=== PATIENT | female | born 1975 | race Caucasian/White ===

== ENCOUNTER 2024-01-27 09:03 | Outpatient (CLI) | payer BC, SELFPAY ==
--- NOTE | ~2024-01-27 | MR_ITS ---
MRI of the lumbar spine Clinical History: Spondylolisthesis Technique: Axial T2-weighted images, and sagittal T1-weighted, T2-weighted, and T2 fat-sat images wer e acquired. Findings: There are bilateral L4 pars interarticularis defects, with 7 mm anterolisthesis of L4 over L5. No acute fracture or other subluxation seen. No suspicious bone marrow signal abnormality seen. P robable type III Modic changes about the L4-L5 disc space. At L1-L2, there is no disc bulge or herniation. There is mild to moderate facet arthropathy. No centr al canal stenosis or neural foraminal narrowing. At L2-L3, there is no disc bulge or herniation. There is mild facet arthropathy. No central canal paul nosis or neural foraminal narrowing. L3-L4, there is no disc bulge or herniation. There is moderate facet arthropathy. No central canal st enosis or neural foraminal narrowing. At L4-L5, there is severe degenerative disc narrowing with minimal disc bulge and moderate facet arth ropathy. No central canal stenosis. There is moderate right neural foraminal narrowing and minimal le ft neural foraminal narrowing. At L5-S1, there is minimal disc bulge and mild to moderate facet arthropathy. No central canal stenos is or neural foraminal narrowing. Paravertebral soft tissues are unremarkable.. Impression: Bilateral L4 pars interarticularis defects, with 7 mm anterolisthesis at this level. Moderate degenerative spondylosis at L4-L5, as above. Reviewed, dictated and finalized at [facility]. Impression: Bilateral L4 pars interarticularis defects, with 7 mm anterolisthesis at this l evel. Moderate degenerative spondylosis at L4-L5, as above.
== END 2024-01-27 09:04 ==
LOC: GOSHIMG 09:04
PROVIDERS: PCP Pain Medicine Pain Medicine; Visit Provider Neurological Surgery
DX: M43.16 Spondylolisthesis, lumbar region (principal); M47.896 Other spondylosis, lumbar region
CPT/HCPCS: 72148

== ENCOUNTER 2024-07-19 13:49 | Outpatient (CLI) | payer BC, SELFPAY ==
--- NOTE | 2024-07-19 14:38 | ECG_ITS ---
Test Date: 2024-07-19 14:50:52 Measurements Intervals Boykins Rate: 63 P: 2 CA: 160 QRS: -1 QRSD: 89 T: 12 QT: 409 QTc: 420 Interpretive Statements SINUS RHYTHM POOR R WAVE PROGRESSION BORDERLINE ECG No previous ECG available for comparison Electronically Signed On 07-19-2024 14:51:56 [employer]ADDLE [employer]ER by Akira Fleming D.O.
[2024-07-19 15:10] LABS: Hematocrit 36.8 % (37.0-47.0); Hemoglobin 11.3 g/dL (12.0-15.0); Mean Corpuscular HGB Conc 30.7 g/dl (32-36); Mean Corpuscular Hemoglobin 25.6 pg (26-34); Mean Corpuscular Volume 83.3 fl (80-100); Mean Platelet Volume 10.3 fl (7.4-10.4); Platelet Count Result 351 k/mm3 (150-375); Red Blood Count 4.42 M/mm3 (4.2-5.4); White Blood Count 7.8 K/mm3 (4.5-10.0)
[2024-07-19 15:29] LABS: Partial Thromboplastin Time 29.5 Seconds (22.3-36.8)
[2024-07-19 16:16] LABS: Anion Gap 7 mmol/L (4-12); Blood Urea Nitrogen 21 mg/dL (7-17); Calcium 9.5 mg/dL (8.4-10.2); Carbon Dioxide 26 mmol/L (22-30); Chloride 105 mmol/L (98-107); Estimated Glomerular Filt Rate > 60; Glucose 86 mg/dL (65-110); Potassium 4.3 mmol/L (3.4-5.0); Sodium 138 mmol/L (137-145)
[2024-07-19 16:30] LABS: Add Urine Microscopic? NO; Appearance Urine Clear (Clear); Bilirubin Urine Negative (Negative); Blood Urine Negative (Negative); Color Urine Yellow (Yellow); Glucose Urine UA Negative (Negative); Ketones Urine Negative (Negative); Leukocyte Esterase Ur Negative LEU/UL (Negative); Nitrate Urine Negative (Negative); Protein Urine Negative (Negative); Specific Grav Ur 1.009 (1.001-1.035); Urobilinogen Urine 0.2 mg/dL (<2.0); pH Urine 5.5 (5.0-9.0)
== END 2024-07-19 13:50 | disposition home or self-care (01) ==
PROVIDERS: Visit Provider Neurological Surgery
DX: Z01.818 Encounter for other preprocedural examination (principal); M43.10 Spondylolisthesis, site unspecified
CPT/HCPCS: 36415; 80048; 81003; 85027; 85610; 85730; 86850; 86900; 86901; 93005

== ENCOUNTER 2024-07-27 00:07 | Inpatient (IN) | payer BC, SELFPAY ==
[2024-07-17 09:27] VITALS: BMI 29.0
--- NOTE | 2024-07-17 09:28 | PC.NURSE ---
Report to the Outpatient Waiting Room, entrance under the green pavilion located off [facility], at time _0600_ on date _[id number]_. Planned Procedure Time: _0730_.? Time changes happen often and if your time is changed the preop area will call you the afternoon before. - You and your visitor will be asked to self-screen and do not enter if you have any COVID symptoms. Please call surgeon if you need to reschedule. - A mask is optional within the hospital at this time. Patients may have clear liquids (water, carbonated beverages, clear teas, apple juice) until 3 hours prior to surgery with a maximum of 20 ounces. - No food from midnight until time of surgery and no smoking. This includes no chewing gum, candy or mints. Take only the following medications with a SIP of water on the morning of surgery: __None____ DO NOT STOP ANY OF YOUR OTHER PRESCRIPTION MEDICATIONS PRIOR TO SURGERY EXCEPT THE FOLLOWING Medications to discontinue per physician ____None____ Please no make-up, nail maltese, hairspray, perfume, deodorant, or body powder the day of surgery.? No jewelry (including any body piercings) or valuables the day of surgery, leave them at home.? Please take a shower or bath the night before, or the morning of, surgery with an antibacterial soap.? Wear comfortable, loose fitting clothing.? - Jewelry must be removed prior to entering the operating room.? Rings and piercings that are not removed may be cut off. - The hospital will not accept responsibility for valuables.? - Please leave all valuables, including medications, at home the day of surgery. If you are going home after surgery, a licensed sheet pile driver operator must drive you home.? - NO public transportation without another adult if you receive anesthesia. - We recommend that an adult stay with you for 24 hours following discharge. - We also recommend that you do not drive, make important decision, drink alcoholic beverages, or take any drugs that were not prescribed by your health care provider for at least 24 hours after your discharge time. Follow any additional instructions given to you from your surgeon. Telephone instructions given to __Shannon_and asked if any additional questions and then verbalized understanding. Patient advised to call surgeon office or pre surgery nurse liaison [phone] if any additional questions.
[2024-07-24] VITALS (17 sets, daily range): BP systolic 118–162; BP diastolic 67–104; PULSE 71–107; RESP 11–20; TEMP 36.2–37.1; O2SAT 97–100; BMI 30.7
[2024-07-24] MEDS: LACTATED RINGERS 1,000 ML 30 ML IV CONT ×2 (06:50→10:25)
--- NOTE | 2024-07-24 07:05 | WPDANESEPPF ---
Anes - Initial Pre Proc Eval Procedure: Operation Date: 07/24/24 07:30 Proposed Procedures p L4-5 Posterior Lumbar Interbody Fusion - Hoang Dalton MD Date/Time: 07/24/24 07:05 Surgeon: Hoang Dalton MD Pre Op Diagnosis: L4 PARS defect, L4-5 spondyolithesis Patient Data Age: 49 Gender: F Height: 1.7 m Weight: 84 kg Allergies Allergy/AdvReac Type Severity Reaction Status Date / Time Sulfa (Sulfonamide Allergy Mild Unknown Verified 07/17/24 15:00 Antibiotics) Home Medications Medication Instructions Recorded Confirmed Type estradiol 1 mg tablet 0.5 mg PO DAILY 10/04/22 07/17/24 History tramadol 50 mg tablet 50 mg PO Q6H PRN Pain 10/04/22 07/17/24 History sumatriptan succinate 50 mg tablet 50 mg PO ONCE PRN Migraine Headache 03/27/24 07/17/24 History (Imitrex) tizanidine 4 mg tablet 4 mg PO HS 07/17/24 07/17/24 History zolpidem 5 mg tablet 5 mg PO HS PRN Insomnia 07/17/24 07/17/24 History Patient hx anesthesia problems: none Family hx anesthesia problems: none Results Review: All pre-operative results and documents have been reviewed as part of the pre-operative evaluation. [facility] Past Medical History Medical History Headache Thyroid disease Surgical History Surgical History H/O: hysterectomy Previous section S/P appendectomy Family History Family History Other Diabetes mellitus Heart disease Hypertension Social History Social History Smoking status: Never smoker Alcohol intake: never Substance use: never Substance use type: does not use Do You Feel Safe in your Home?: Yes Lack of Transportation: No Lack of Food: Never True Current Housing: I Have Housing Concerned About Future Housing: No Difficulty Paying Gas/Electric Bills: No Difficulty Paying for Meds: No Currently Unemployed: No Education: Associate Degree Difficulty w/ Childcare or Family Care: No Living arrangements: with family Spiritual care concerns: No Anes - Eval Final PreProcedure Day of Procedure 07/24/24 07:05 Patient weight: overweight Heart: regular rate and rhythm Lungs: clear to auscultation Airway: Mallampati scale class II Neurological: alert and oriented Last oral intake: >/= 8 hours ASA classification: II Emergent: no Anesthetic plan: proceed Anesthesia type and monitoring: general ETT and standard monitoring Results Review: All pre-operative results and documents have been reviewed as part of the pre-operative evaluation. Hx of multinodular goiter, stable of recent, migrane WAGONER by hx. Pt can walk 1-2 fos, 1 mile, no cp or sob. Informed Consent: The patient's anesthetic plan and its attendant risks and benefits were discussed with the patient/family/POA. Questions were solicited and answers provided to the satisfaction of the patient/family/POA.
--- NOTE | 2024-07-24 07:46 | P.HP_ITS ---
H&P: HPI History of Present Illness Date/Time: 07/24/24 07:46 Chief Complaint: Back and leg pain Narrative: Temitope is 49-year-old female with back and leg pain related to pars defects. She continues to have discomfort in her back radiating into her lower extremities. She has episodes every couple of months where the pain is more significant. she recently had such an episode. In December she had about 4 weeks of more severe pain and underwent a new MRI of her lumbar spine because of it. It eventually resolved. She has difficulty sleeping at night. She is able to walk well enough to do normal shopping activities. She is now back to her baseline discomfort pattern and can participate in landscaping and lawn care activities for about 45 minutes but will pay for it the next day. She is not having new bowel or bladder difficulty or other constitutional problems. She does not report specific muscle group weakness or dermatomal numbness. An always her problems seem to have remained the same since we saw her last. Her discomfort has been present for years. It is Limiting and distracting on a daily basis. at times it is quite severe, as noted. It is not associated with specific muscle group weakness or dermatomal numbness or any bowel or bladder difficulty. The pain is mostly in her back and radiates only proximally into the lower extremities and does not lateralize. Review of Systems Review of Systems: All systems reviewed & are unremarkable except as noted in HPI and below Denies chills, Denies fever(s), Denies frequent falls, Denies weakness, Denies weight gain and Denies weight loss Eyes Denies change in vision and Denies diplopia ENT Denies neck pain and Denies disequilibrium Card Denies chest pain and Denies dyspnea Resp Denies cough and Denies dyspnea GI Denies abdominal pain, Denies change in bowel habits, Denies fecal incontinence and Denies vomiting Denies hematuria, Denies urinary frequency, Denies difficulty voiding, Denies dysuria, Denies urinary incontinence, Denies urinary hesitancy and Denies urinary urgency Musc Reports as per HPI, Denies abnormal gait, Reports back pain, Denies neck pain, Denies numbness, Reports stiffness and Denies tingling Skin/ Breast Reports system reviewed and no additional complaints, except as documented Neuro Reports as per HPI, Denies abnormal gait, Denies burning sensations, Denies frequent falls, Denies focal weakness, Denies numbness, Denies radicular pain, Denies tingling, Denies disequilibrium and Denies weakness Psych Reports no additional complaints, Denies depression and Denies hopelessness Endo Reports no additional complaints and Denies polyuria Jasper/ Lymph Reports no additional complaints Aller/ Immun Reports no additional complaints PMFSH Past Medical History Medical History Headache Thyroid disease Surgical History Surgical History H/O: hysterectomy Previous section S/P appendectomy Family History Family History Other Diabetes mellitus Heart disease Hypertension Social History Social History Smoking status: Never smoker Alcohol intake: never Substance use: never Substance use type: does not use Do You Feel Safe in your Home?: Yes Lack of Transportation: No Lack of Food: Never True Current Housing: I Have Housing Concerned About Future Housing: No Difficulty Paying Gas/Electric Bills: No Difficulty Paying for Meds: No Currently Unemployed: No Education: Associate Degree Difficulty w/ Childcare or Family Care: No Living arrangements: with family Spiritual care concerns: No Meds Home Medications and Allergies Home Medications Medication Instructions Recorded Confirmed Type estradiol 1 mg tablet 0.5 mg PO DAILY 10/04/22 07/17/24 History tramadol 50 mg tablet 50 mg PO Q6H PRN Pain 10/04/22 07/17/24 History sumatriptan succinate 50 mg tablet 50 mg PO ONCE PRN Migraine Headache 03/27/24 07/17/24 History (Imitrex) tizanidine 4 mg tablet 4 mg PO HS 07/17/24 07/17/24 History zolpidem 5 mg tablet 5 mg PO HS PRN Insomnia 07/17/24 07/17/24 History Allergies Allergy/AdvReac Type Severity Reaction Status Date / Time Sulfa (Sulfonamide Allergy Mild Unknown Verified 07/24/24 07:21 Antibiotics) Vital Signs Vital Signs - 24 hr 07/24/24 06:13 Temperature 97.2 F L Pulse Rate 71 Respiratory Rate 16 Blood Pressure 136/83 Pulse Oximetry 100 Oxygen Delivery Room Air Exam Narrative: General: cooperative, no acute distress, well developed, alert and awake Orientation/Consciousness: oriented to person, oriented to place and oriented to time Constitutional Limitations: no limitations Other: The patient is a normally developed, normal appearing female sitting on the examination table in no acute distress. She is awake, alert, and oriented x3 with good fund of knowledge, recall of events, and fluent speech. HENMT Head: normocephalic and atraumatic Ears: external ears normal Face/Nose/Sinus: Normal external nose present Eyes Eyelids: eyelids normal Pupils: Yes Pupils normal by confrontation EOM: EOMs intact bilaterally Neck General: Yes no meningeal signs, Yes supple and Yes no JVD Resp Effort/Inspection: normal respiratory effort and able to speak in complete sentences Cardio Rate: Yes regular rate GI Inspection: No abdominal distension Musc Other: Examination of the back reveals no tenderness in the lumbar paraspinous musculature or over the sacrum. Range of motion of the back is limited in forward flexion and painful coming out of flexion. Straight leg raise is negative bilaterally. Linden?s test is negative bilaterally. Skin General: normal color Neuro General: Yes oriented to person, Yes oriented to place, Yes oriented to time, Yes normal cognition and Yes no meningeal signs Cranial Nerves: Yes CN's II-XII intact bilaterally Other: Motor: Strength is normal, 5/5, throughout all muscle groups of the bilateral lower extremities to direct confrontation. Sensory: Sensation is intact to light touch throughout the lower extremities bilaterally. Gait: Gait, station, and transfers are independent and steady for short periods of time and over short distances. Psych Appearance: grossly normal Mental status: Yes mental status grossly normal Mood: congruent mood Affect: Yes normal affect Speech/Movement: Normal speech and movement present Attitude: Yes cooperative Thought Content: Normal thought content present Assessment and Plan Assessment and plan (1) Pars defect with spondylolisthesis: Code(s): M43.10 - Spondylolisthesis, site unspecified Status: Acute Assessment and Plan: Temitope is a 49-year-old female with back pain which is severe and limiting for her and which she has been dealing with for years and is now become unbearable limiting her on a daily basis. She would like to proceed with surgical management is all nonsurgical attempts to make her better have failed. I therefore described her L4-5 posterior lumbar interbody fusion, its risks, potential benefits, the operative and postoperative course in detail and answe red all of her questions personally. We discussed risks including but not limited to permanent neurologic deficit secondary to nerve root injury, need for reoperation secondary to infection, bleeding, CSF leak, adjacent level disease, recurrent residual pathology, instability, failure of the procedure to relieve her pain or symptoms, malposition migration of the hardware or nonunion, persistent pain, medical complications related anesthesia or surgery, etc.. She indicates understanding and elects to proceed with that operation.
--- NOTE | 2024-07-24 07:49 | WPDHPUPDATE1 ---
History and Physical Update Update Date/Time: 07/24/24 07:49 History and Physical has been reviewed, including an updated exam of the patient. There are NO changes in the patient's condition. Risks, benefits, and alternatives have been discussed and questions answered. Patient agrees to proceed with procedure.
[2024-07-24] MEDS: ceFAZolin 2 GM/D5W 50 ML 2 GM/50 ML BAG IVPB (07:55)
[2024-07-24] MEDS: LIDO 1%/EPINEPHRINE 1:100,000 50 ML VIAL INFILTRATE (08:38)
[2024-07-24] MEDS: fentaNYL CITRATE INJ (*CRX) 100 MCG/2 ML VIAL 25 MCG IV PUSH ×8 (10:33→10:54)
[2024-07-24] MEDS: diazePAM INJ (*CRX) 10 MG/2 ML SYRINGE 2.5 MG IV PUSH ×2 (11:00→11:05)
[2024-07-24] MEDS: HYDROmorphone HCL INJ (*CRX) 1 MG/ML SYR 0.25 MG IV PUSH ×12 (11:10→12:10)
[2024-07-24] MEDS: KCL 20 MEQ/D5/0.45% SOD CHL 1,000 ML 100 ML IV CONT (13:04)
[2024-07-24] MEDS: HYDROmorphone HCL INJ (*CRX) 1 MG/ML SYR IV PUSH ×3 (13:07→18:53)
--- NOTE | 2024-07-24 13:28 | ADMGEN ---
This patient, Temitope Duarte, was admitted to [facility] Surg Room 331-02. Patient/family oriented to hospital policies and general routines including ID bracelet, bed and alarms, visiting hours, pain management, procedures, bathroom and other care routines, personal items, smoking policy, room service/diet, and visiting hours. Information on how to activate the Rapid Response Team has been discussed. Patient/Family are encouraged to report perceived risks to care and to ask questions if they do not understand what they are told or what they should do.
[2024-07-24] MEDS: diazePAM INJ (*CRX) 10 MG/2 ML SYRINGE 5 MG IV PUSH (14:08)
--- NOTE | 2024-07-24 14:39 | PCPTNOTE ---
Attempted PT evaluation, pt refused due to pain. Will follow.
[2024-07-24] MEDS: ceFAZolin 1 GM/NS 50 ML 1 GM/50 ML BAG IVPB ×2 (15:36→23:20)
[2024-07-24] MEDS: ONDANSETRON INJ 4 MG/2 ML VIAL IV PUSH (16:28)
[2024-07-24] MEDS: HYDROcodone/acetaminophen (*CRX) 5-325 MG TABLET 1 TAB PO ×2 (17:11→21:35)
[2024-07-24] MEDS: SENNA/DOCUSATE SODIUM TABLET 1 TAB PO (17:20)
[2024-07-24] MEDS: DOCUSATE SODIUM 100 MG CAPSULE PO (20:02)
[2024-07-24] MEDS: diazePAM (*CRX) 5 MG TABLET PO (20:02)
[2024-07-25] MEDS: HYDROcodone/acetaminophen (*CRX) 5-325 MG TABLET 1 TAB PO ×2 (00:42→05:03)
[2024-07-25] MEDS: ONDANSETRON INJ 4 MG/2 ML VIAL IV PUSH ×2 (00:42→12:03)
[2024-07-25 00:56] VITALS: BP 116/57; PULSE 70; RESP 16; TEMP 36.7; O2SAT 100
[2024-07-25] MEDS: diazePAM (*CRX) 5 MG TABLET PO ×4 (01:58→20:33)
[2024-07-25 05:37] VITALS: BP 110/58; PULSE 71; RESP 18; TEMP 37.9; O2SAT 100
[2024-07-25 08:00] VITALS: BP 123/81; PULSE 92; RESP 20; TEMP 37; O2SAT 100
--- NOTE | 2024-07-25 08:00 | WPDANESPN ---
Anes - Prog Note Post-Op Date/Time: 07/25/24 08:00 Cardiovascular status: normal Respiratory status: normal Airway patency: baseline Mental status: baseline (Patient tearful due to pain level.) Post-Op hydration status: normal Vital Signs: Last Vital Signs Temp 37.9 C H 07/25/24 05:37 Pulse 71 07/25/24 05:37 Resp 18 07/25/24 05:37 BP 110/58 L 07/25/24 05:37 Pulse Ox 100 07/25/24 05:37 O2 Del Method Room Air 07/24/24 20:00 O2 Flow Rate 6 07/24/24 10:55 Pain Score (VAS): 10 I/O: Intake & Output 07/24/24 07/25/24 07/25/24 23:59 07:59 15:59 Intake Total 170 550 Output Total 2200 Balance 170 -1650 Post-procedural complaints: none (No anesthesia complaints.) Patient Feedback: Patient satisfied with anesthetic care.
[2024-07-25] MEDS: ceFAZolin 1 GM/NS 50 ML 1 GM/50 ML BAG IVPB (08:04)
[2024-07-25] MEDS: DOCUSATE SODIUM 100 MG CAPSULE PO ×2 (08:04→20:33)
[2024-07-25] MEDS: HYDROcodone/acetaminophen (*CRX) 10-325 MG TABLET 1 TAB PO (08:46)
[2024-07-25] MEDS: HYDROmorphone HCL INJ (*CRX) 1 MG/ML SYR IV PUSH ×2 (09:15→17:51)
--- NOTE | 2024-07-25 10:32 | PCOTNOTE ---
Patient has declined therapy for the A.M. Patient's has declined her PT Evaluation and OT treatment sessions this morning. Patient states she is having to much pain, refuses. Will attempt again this afternoon.
[2024-07-25] MEDS: ACETAMINOPHEN 500 MG TABLET 1000 MG PO ×3 (12:01→20:33)
[2024-07-25] MEDS: oxyCODONE HCL (*CRX) 5 MG TAB IR 10 MG PO ×3 (12:02→20:33)
--- NOTE | 2024-07-25 13:10 | W.PM.PROC2 ---
Procedure Note - Detailed Date of Procedure 07/25/24 Pre-op Diagnosis L4 PARS defect, L4-5 spondyolithesis Post-op Diagnosis Same Procedure Performed L4-5 complete laminectomy and bilateral facetectomy, L4-5 complete diskectomy and interbody arthrodesis utilizing titanium interbody devices and local autograft, L4-5 pedicle screw instrumentation Surgeon Hoang Dalton MD Anesthesia General Description of Procedure the patient was brought to the operating room in the supine position, was sedated, intubated and placed under general anesthesia in routine fashion. She was then turned into the prone position on a Carlos frame. The operation on her back was examined, marked for incision, prepped and draped in routine sterile fashion. Incision was marked over the L4 and L5 spinous processes in the midline. This area was injected with 0.5% lidocaine with 1 200,000 epinephrine. Intravenous antibiotics given prior to incision. Incision was made with a 10 blade scalpel down to the lumbodorsal fascia. A subperiosteal dissection of the muscle and soft tissue away from spinous process and lamina at L4-5 was performed with a subperiosteal elevator and Bovie cautery. A verifying x-rays obtained to verify level of operation. The L4 spinous process was removed with a Jose rongeur. Kerrison punches, curved curettes and a Leksell rongeur were used to remove lamina in the midline until the soft contents of the canal were encountered. Pars was interrupted because of pars defects on either side. The inferior articular process and facet of L4 was removed bilaterally after incising the ligament holding the joint in place. These +spinous process were stripped free of soft tissue and morselized for later use as interbody autograft. Kerrison punches and curved curettes were used to define a plane with the dura and remove bone and ligament flush with the pedicle and through the foramina widely decompressing the exiting nerve roots. With the thecal sac retracted and protected the disc space is entered bilaterally using an 11 blade scalpel. This was done with an introducer. Only a 7 mm scraper could be used. Curved curettes and straight curettes were used to remove cartilaginous endplate disc material down to bleeding cortical flat surfaces on the opposing bones. The disc space was incised and 9 mm interbody devices were chosen and filled with local autograft bone. The disc space was likewise filled with local autograft bone medially and anteriorly. Interbody devices were then placed 2-3 mm countersink within the disc space bilaterally. Pedicle screw instrumentation was performed at L4 and L5 by observing and palpating the pedicle while a hole was made in superior articular process of the pedicle using a Midas Elmer drill. The pedicle was then cannulated with a pedicle probe, check for continuity with the ball probe, tapped with a 5.5 mm tap and a 6.5 x 50 mm screw was placed into each pedicle on each side. 40 mm rods were placed in the screw heads on either side and secured in position using the capsular that purpose. These were definitively tightened with the torque and anti torque device. A verifying x-rays obtained to verify good position of the instrumentation which was confirmed. The wound was copiously irrigated with bacitracin irrigation all bleeding stopped with bipolar and Bovie cautery Gelfoam thrombin powder. As there were some areas of dural thinning piece of DuraGen and DuraSeal were placed over these areas. No leaking was noted. No drain was placed. The wound was then closed in layered fashion with 2-0 Vicryl interrupted sutures in the lumbodorsal fascia and Josh's layer. 3-0 Vicryl buried interrupted sutures were placed in the dermis and the skin was closed with a running 4-0 Monocryl subcuticular stitch and dressed with Dermabond. The patient was loud wake up in the operating room and was taken to the recovery room in stable condition. There were no immediate complications of this operation. All counts were reported correct at the end case. Blood loss was 150 cc. The patient was neurologically at her baseline postoperatively. CPT codes: 91862, 22964, 81402, 91934, 70144 Estimated Blood Loss 150 Complications None Condition Stable Disposition PACU
--- NOTE | 2024-07-25 13:26 | WPDNEUROSGPN ---
Progress Note: A&P Assessment and Plan (1) Status post lumbar spinal arthrodesis: Code(s): Z98.1 - Arthrodesis status Status: Acute Plan -Changed pain medication to scheduled Tylenol with PRN oxycodone -Remove owen catheter today -Out of bed to chair, ambulate during day -PT/OT evaluations Subjective Date/time seen: 07/25/24 13:26 Interval history: Having quite a bit of back pain today which has been best relieved with valium and a dose of dilaudid. Denies leg pain/paresthesias. She has been ambulating, mostly to try to find a more comfortable position. Poor PO intake due to pain and nausea. Owen catheter is still in Review of Systems Review of Systems: All systems reviewed & are unremarkable except as noted in HPI and below Exam Narrative: AOx4 Full strength in lower extremities Sensation intact to light touch Incision c/d/i Objective Data Vital Signs Vital Signs: Vital Signs - 24 hr 07/24/24 13:33 07/24/24 13:37 07/24/24 14:00 Temperature 97.7 F 97.7 F 98.1 F Pulse Rate 97 99 104 H Respiratory Rate 17 16 17 Blood Pressure 135/88 127/84 162/91 H Pulse Oximetry 100 99 98 Oxygen Delivery 07/24/24 17:37 07/24/24 20:41 07/24/24 20:00 Temperature 97.5 F L 98.2 F Pulse Rate 91 90 90 Respiratory Rate 17 20 20 Blood Pressure 131/85 118/67 Pulse Oximetry 100 99 99 Oxygen Delivery Room Air 07/25/24 00:56 07/25/24 05:37 07/25/24 08:00 Temperature 98.1 F 100.2 F H 98.6 F Pulse Rate 70 71 92 Respiratory Rate 16 18 20 Blood Pressure 116/57 L 110/58 L 123/81 Pulse Oximetry 100 100 100 Oxygen Delivery 07/25/24 08:00 Temperature Pulse Rate Respiratory Rate Blood Pressure Pulse Oximetry Oxygen Delivery Room Air Intake/Output Intake/Output: Intake & Output 07/22/24 07/23/24 07/24/24 07/25/24 23:59 23:59 23:59 23:59 Intake Total 870 908 Output Total 1350 2200 Balance -151 -0443 Meds/Results Medications: Active Medications Generic Name Dose Route Start Last Admin Trade Name Freq PRN Reason Stop Dose Admin Acetaminophen 1,000 mg 07/25/24 11:50 07/25/24 12:01 Acetaminophen 500 Mg Tablet PO 1,000 mg Q6H PRINCE Administration Al Hydrox/Mg Hydrox/Simethicone 20 ml 07/24/24 10:37 Mag Hydrox/Al Hydrox/Simeth 30 Ml Udc PO Q4H PRN Indigestion/Heartburn Bisacodyl 10 mg 07/24/24 10:37 Bisacodyl 10 Mg Suppository RECTAL DAILY PRN Constipation Diazepam 5 mg 07/24/24 13:57 07/25/24 08:04 Diazepam (*Crx) 5 Mg Tablet PO 5 mg Q6HR PRN Administration Muscle Spasm Docusate Sodium 100 mg 07/24/24 21:00 07/25/24 08:04 Docusate Sodium 100 Mg Capsule PO 100 mg Q12HR PRINCE Administration Estradiol 0.5 mg 07/25/24 09:00 07/25/24 08:04 Estradiol 0.5 Mg Tablet PO Not Given DAILY PRINCE Hydromorphone HCl 1 mg 07/24/24 12:58 07/25/24 09:15 Hydromorphone Hcl Inj (*Crx) 1 Mg/Ml Syr IV PUSH 1 mg Q2H PRN Administration Pain Rated 7-10 Cefazolin Sodium 1 gm in 50 mls @ 100 mls/hr 07/24/24 16:00 07/25/24 08:04 Ancef 1 Gm/Ns 50 Ml IVPB 100 mls/hr Q8H PRINCE Administration Potassium Chloride/Dextrose/Sod Cl 1,000 mls @ 100 mls/hr 07/24/24 10:40 07/24/24 13:04 Kcl 20 Meq/D5/0.45% Sod Chl IV CONT 100 mls/hr .Q10H PRINCE Administration Ondansetron HCl 4 mg 07/24/24 10:37 07/25/24 12:03 Ondansetron Inj 4 Mg/2 Ml Vial IV PUSH 4 mg Q8H PRN Administration Nausea And Vomiting Oxycodone HCl 5 mg 07/25/24 11:49 Oxycodone Hcl (*Crx) 5 Mg Tab Ir PO Q4H PRN Pain Rated 4-6 Oxycodone HCl 10 mg 07/25/24 11:49 07/25/24 12:02 Oxycodone Hcl (*Crx) 5 Mg Tab Ir PO 10 mg Q4H PRN Administration Pain Rated 7-10 Senna/Docusate Sodium 1 tab 07/24/24 10:37 07/24/24 17:20 Senna/Docusate Sodium Tablet PO 1 tab HS PRN Administration Constipation Sumatriptan Succinate 50 mg 07/24/24 12:31 Sumatriptan Succinate 25 Mg Tablet PO ONCE PRN Migraine Headache Zolpidem Tartrate 5 mg 07/24/24 12:31 Zolpidem Tartrate (*Crx) 5 Mg Tablet PO HS PRN Insomnia Radiology Results: ITS Impressions Fluoroscopy 07/24/24 11:14 IMPRESSION: 1. Fluoroscopy utilized during L4 laminectomy and instrumented L4-L5 anterior and posterior spinal fusion. See procedure note for further detail.
[2024-07-25] MEDS: CYCLOBENZAPRINE HCL 10 MG TABLET PO (18:09)
[2024-07-25] MEDS: SENNA/DOCUSATE SODIUM TABLET 1 TAB PO (20:34)
[2024-07-25 21:29] VITALS: BP 109/59; PULSE 75; RESP 12; TEMP 36.4; O2SAT 97
[2024-07-26] MEDS: oxyCODONE HCL (*CRX) 5 MG TAB IR 10 MG PO ×5 (00:25→18:28)
[2024-07-26] MEDS: diazePAM (*CRX) 5 MG TABLET PO ×4 (02:00→20:30)
[2024-07-26] MEDS: HYDROmorphone HCL INJ (*CRX) 1 MG/ML SYR IV PUSH ×4 (02:10→19:42)
[2024-07-26] MEDS: CYCLOBENZAPRINE HCL 10 MG TABLET PO (05:10)
[2024-07-26] MEDS: ACETAMINOPHEN 500 MG TABLET 1000 MG PO ×4 (05:10→22:47)
[2024-07-26 05:49] VITALS: BP 107/61; PULSE 87; RESP 22; TEMP 37; O2SAT 96
--- NOTE | 2024-07-26 06:32 | PC.NURSE ---
Spoke with Dr. Hernandes at this time r/t uncontrolled pain. New orders received to D/C cyclobenzaprine, start methocarbamol 1000 mg PO Q6H PRN, and change dilaudid 1 mg Q2H PRN for breakthrough pain.
[2024-07-26] MEDS: DOCUSATE SODIUM 100 MG CAPSULE PO ×2 (08:16→20:30)
[2024-07-26] MEDS: estradioL 0.5 MG TABLET PO (08:16)
[2024-07-26] MEDS: ONDANSETRON INJ 4 MG/2 ML VIAL IV PUSH (08:23)
[2024-07-26] MEDS: KETOROLAC 15 MG/ML VIAL (*BKC) IV PUSH (10:25)
--- NOTE | 2024-07-26 10:57 | WPDNEUROSGPN ---
Progress Note: A&P Assessment and Plan (1) Status post lumbar spinal arthrodesis: Code(s): Z98.1 - Arthrodesis status Status: Acute Plan -Added methocarbamol this morning -Will try to extend length of IV dilaudid administration -We could consider adding lidocaine patches and/or decadron if pain remains uncontrolled this afternoon -Encouraged her to be up walking in halls and in chair during day -Will start DVT ppx today -She may shower today and get incision wet -PT/OT has cleared for outpatient therapy Subjective Date/time seen: 07/26/24 10:57 Interval history: Feeling slightly better today but is still requiring frequent IV dilaudid administration. Valium has been most helpful. Pain is limited to her back. She denies pain or paresthesias in the legs. She has been getting up every couple hours. Voiding independently since owen was removed. PO intake is improving as well. Review of Systems Review of Systems: All systems reviewed & are unremarkable except as noted in HPI and below Exam Narrative: AOx4 Incision c/d/i Moving legs with good strength Objective Data Vital Signs Vital Signs: Vital Signs - 24 hr 07/25/24 13:59 07/25/24 21:29 07/25/24 20:00 Temperature 97.6 F Pulse Rate 75 Respiratory Rate 12 Blood Pressure 109/59 L Pulse Oximetry 97 Oxygen Delivery Room Air Room Air 07/26/24 05:49 Temperature 98.6 F Pulse Rate 87 Respiratory Rate 22 H Blood Pressure 107/61 Pulse Oximetry 96 Oxygen Delivery Intake/Output Intake/Output: Intake & Output 07/23/24 07/24/24 07/25/24 07/26/24 23:59 23:59 23:59 23:59 Intake Total 870 908 670 Output Total 1350 3050 Balance -480 -6724 670 Meds/Results Medications: Active Medications Generic Name Dose Route Start Last Admin Trade Name Freq PRN Reason Stop Dose Admin Acetaminophen 1,000 mg 07/25/24 11:50 07/26/24 05:10 Acetaminophen 500 Mg Tablet PO 1,000 mg Q6H PRINCE Administration Al Hydrox/Mg Hydrox/Simethicone 20 ml 07/24/24 10:37 Mag Hydrox/Al Hydrox/Simeth 30 Ml Udc PO Q4H PRN Indigestion/Heartburn Bisacodyl 10 mg 07/24/24 10:37 Bisacodyl 10 Mg Suppository RECTAL DAILY PRN Constipation Diazepam 5 mg 07/24/24 13:57 07/26/24 08:16 Diazepam (*Crx) 5 Mg Tablet PO 5 mg Q6HR PRN Administration Muscle Spasm Docusate Sodium 100 mg 07/24/24 21:00 07/26/24 08:16 Docusate Sodium 100 Mg Capsule PO 100 mg Q12HR PRINCE Administration Estradiol 0.5 mg 07/25/24 09:00 07/26/24 08:16 Estradiol 0.5 Mg Tablet PO 0.5 mg DAILY PRINCE Administration Hydromorphone HCl 1 mg 07/24/24 12:58 07/26/24 08:20 Hydromorphone Hcl Inj (*Crx) 1 Mg/Ml Syr IV PUSH 1 mg Q2H PRN Administration Breakthrough Pain Methocarbamol 1,000 mg 07/26/24 06:30 Methocarbamol 500 Mg Tablet PO Q6H PRN Spasms Ondansetron HCl 4 mg 07/24/24 10:37 07/26/24 08:23 Ondansetron Inj 4 Mg/2 Ml Vial IV PUSH 4 mg Q8H PRN Administration Nausea And Vomiting Oxycodone HCl 5 mg 07/25/24 11:49 Oxycodone Hcl (*Crx) 5 Mg Tab Ir PO Q4H PRN Pain Rated 4-6 Oxycodone HCl 10 mg 07/25/24 11:49 07/26/24 10:15 Oxycodone Hcl (*Crx) 5 Mg Tab Ir PO 10 mg Q4H PRN Administration Pain Rated 7-10 Senna/Docusate Sodium 1 tab 07/24/24 10:37 07/25/24 20:34 Senna/Docusate Sodium Tablet PO 1 tab HS PRN Administration Constipation Sumatriptan Succinate 50 mg 07/24/24 12:31 Sumatriptan Succinate 25 Mg Tablet PO ONCE PRN Migraine Headache Zolpidem Tartrate 5 mg 07/24/24 12:31 Zolpidem Tartrate (*Crx) 5 Mg Tablet PO HS PRN Insomnia Radiology Results: ITS Impressions Fluoroscopy 07/24/24 11:14 IMPRESSION: 1. Fluoroscopy utilized during L4 laminectomy and instrumented L4-L5 anterior and posterior spinal fusion. See procedure note for further detail.
[2024-07-26] MEDS: methocarbamoL 500 MG TABLET 1000 MG PO ×3 (11:34→23:40)
[2024-07-26 14:00] VITALS: BP 116/61; PULSE 89; RESP 14; O2SAT 96
[2024-07-26] MEDS: HEPARIN SODIUM 5,000 UNITS/ML VIAL 5000 UNITS SUB-Q ×2 (17:35→22:48)
[2024-07-26] MEDS: dexAMETHasone SOD PHOS INJ 10 MG/ML 1 ML VIAL IV PUSH (17:35)
[2024-07-26] MEDS: LIDOCAINE 5% PATCH 1 PATCH TRANSDERM (17:35)
[2024-07-26 20:20] VITALS: BP 97/62; PULSE 88; RESP 16; TEMP 36.5; O2SAT 94
[2024-07-26 21:30] VITALS: BP 116/70
[2024-07-26] MEDS: dexAMETHasone 4 MG TABLET PO (22:47)
[2024-07-26] MEDS: oxyCODONE HCL (*CRX) 5 MG TAB IR PO (22:47)
--- NOTE | ~2024-07-27 | XR_ITS ---
EXAMINATION: XR fluoroscopy no charge DATE: 07/24/2024 10:15 INDICATION: L4-L5 posterior lumbar interbody fusion TECHNIQUE: 3 fluoroscopic images of the lumbar spine were obtained during procedure performed by Dr. Dalton. Radiologist was not present for the imaging or procedure. The amount of fluoroscopy time us ed during this procedure was 0.1 minutes. Total DAP was 0.824 Gycm^2. COMPARISON: None. FINDINGS: Images demonstrate tissue retractors projecting posterior to L4-L5 and a metallic probe projecting ov er the posterior margin of the L4-L5 facet joint. Subsequent images demonstrate likely L4 laminectomy and placement of interbody fusion device at the L4-L5 disc space. There is also been an instrumented posterior spinal fusion with bilateral vertical tabatha and pedicle screw fixations. The degree of mild anterolisthesis of L4 on L5 seen on the initial image is reduced by approximately half following the anterior and posterior fusion. There is increased lucency in the region of the posterior elements of L4-L5 suggesting associated L4 laminectomy. Curvilinear density projects over the laminectomy bed whi ch could represent lap sponge marker, small catheter or bone graft stimulator lead. IMPRESSION: 1. Fluoroscopy utilized during L4 laminectomy and instrumented L4-L5 anterior and posterior spinal fu raji. See procedure note for further detail. Reviewed, dictated and finalized at location A. TORIAL ASSISTANT IMPRESSION: 1. Fluoroscopy utilized during L4 laminectomy and instrumented L4-L5 anterior a nd posterior spinal fusion. See procedure note for further detail.
[2024-07-27] MEDS: diazePAM (*CRX) 5 MG TABLET PO ×4 (02:33→23:14)
[2024-07-27] MEDS: oxyCODONE HCL (*CRX) 5 MG TAB IR 10 MG PO ×3 (02:49→11:23)
[2024-07-27 05:32] VITALS: BP 100/60; PULSE 77; RESP 16; TEMP 36.2; O2SAT 93
[2024-07-27] MEDS: methocarbamoL 500 MG TABLET 1000 MG PO ×3 (05:48→21:04)
[2024-07-27] MEDS: dexAMETHasone 4 MG TABLET PO ×4 (05:48→23:14)
[2024-07-27] MEDS: HEPARIN SODIUM 5,000 UNITS/ML VIAL 5000 UNITS SUB-Q (05:48)
[2024-07-27] MEDS: ACETAMINOPHEN 500 MG TABLET 1000 MG PO ×4 (05:48→23:14)
[2024-07-27] MEDS: LIDOCAINE 5% PATCH 1 PATCH TRANSDERM (08:14)
[2024-07-27] MEDS: DOCUSATE SODIUM 100 MG CAPSULE PO ×2 (08:18→20:34)
[2024-07-27] MEDS: estradioL 0.5 MG TABLET PO (08:19)
--- NOTE | 2024-07-27 09:01 | P.PNNEUSUR_ITS ---
Progress Note: A&P Assessment and Plan (1) Status post lumbar spinal arthrodesis: Code(s): Z98.1 - Arthrodesis status Status: Acute Assessment and Plan: Patient still has not had bowel movement, added miralax to aid in bowel movement. She is visibly in moderate-severe pain and I do no think she is ready to go home today. She would like to wait an additional day to re-assess. Subjective Date/time seen: 07/27/24 09:01 Interval history: Still notes significant pain in low back, but is off of IV dilaudid. She is no sure if she's able to go home today and is worried she may re-present to hospital if she cannot control her pain. Exam Narrative: visibly uncomfortable, and wincing in pain with movement. awake alert no acute distress moves BLE 5/5 including IP/Q/H/PF/DF/EHL inc c/d/i lidocaine patches on Objective Data Vital Signs Vital Signs: Vital Signs - 24 hr 07/26/24 14:00 07/26/24 20:20 07/26/24 20:00 Temperature 97.7 F Pulse Rate 89 88 Respiratory Rate 14 16 Blood Pressure 116/61 97/62 L Pulse Oximetry 96 94 Oxygen Delivery Room Air 07/26/24 21:30 07/27/24 05:32 Temperature 97.2 F L Pulse Rate 77 Respiratory Rate 16 Blood Pressure 116/70 100/60 Pulse Oximetry 93 Oxygen Delivery Intake/Output Intake/Output: Intake & Output 07/24/24 07/25/24 07/26/24 07/27/24 23:59 23:59 23:59 23:59 Intake Total 174 471 4632 Output Total 1350 3050 Balance -480 -2142 1150 Meds/Results Medications: Active Medications Generic Name Dose Route Start Last Admin Trade Name Freq PRN Reason Stop Dose Admin Acetaminophen 1,000 mg 07/25/24 11:50 07/27/24 05:48 Acetaminophen 500 Mg Tablet PO 1,000 mg Q6H PRINCE Administration Al Hydrox/Mg Hydrox/Simethicone 20 ml 07/24/24 10:37 Mag Hydrox/Al Hydrox/Simeth 30 Ml Udc PO Q4H PRN Indigestion/Heartburn Bisacodyl 10 mg 07/24/24 10:37 Bisacodyl 10 Mg Suppository RECTAL DAILY PRN Constipation Dexamethasone 4 mg 07/27/24 00:00 07/27/24 05:48 Dexamethasone 4 Mg Tablet PO 4 mg Q6HR PRINCE Administration Diazepam 5 mg 07/24/24 13:57 07/27/24 02:33 Diazepam (*Crx) 5 Mg Tablet PO 5 mg Q6HR PRN Administration Muscle Spasm Docusate Sodium 100 mg 07/24/24 21:00 07/27/24 08:18 Docusate Sodium 100 Mg Capsule PO 100 mg Q12HR PRINCE Administration Estradiol 0.5 mg 07/25/24 09:00 07/27/24 08:19 Estradiol 0.5 Mg Tablet PO 0.5 mg DAILY PRINCE Administration Heparin Sodium (Porcine) 5,000 units 07/26/24 14:00 07/27/24 05:48 Heparin Sodium 5,000 Units/Ml Vial SUB-Q 5,000 units Q8HR PRINCE Administration Hydromorphone HCl 1 mg 07/26/24 11:03 07/26/24 19:42 Hydromorphone Hcl Inj (*Crx) 1 Mg/Ml Syr IV PUSH 1 mg Q4H PRN Administration Breakthrough Pain Lidocaine 1 patch 07/26/24 16:00 07/27/24 08:14 Lidocaine 5% Patch TRANSDERM 1 patch DAILY PRINCE Administration Methocarbamol 1,000 mg 07/26/24 06:30 07/27/24 05:48 Methocarbamol 500 Mg Tablet PO 1,000 mg Q6H PRN Administration Spasms Miscellaneous Information 0 each 07/26/24 00:01 Lidocaine Patch - Please Add Application Site To Order Comments XX 08/25/24 00:00 [facility] Ondansetron HCl 4 mg 07/24/24 10:37 07/26/24 08:23 Ondansetron Inj 4 Mg/2 Ml Vial IV PUSH 4 mg Q8H PRN Administration Nausea And Vomiting Oxycodone HCl 5 mg 07/25/24 11:49 07/26/24 22:47 Oxycodone Hcl (*Crx) 5 Mg Tab Ir PO 5 mg Q4H PRN Administration Pain Rated 4-6 Oxycodone HCl 10 mg 07/25/24 11:49 07/27/24 06:54 Oxycodone Hcl (*Crx) 5 Mg Tab Ir PO 10 mg Q4H PRN Administration Pain Rated 7-10 Polyethylene Glycol 17 gm 07/27/24 08:57 Polyethylene Glycol 3350 17 Gm Powd.Pack PO QAM PRN Constipation Senna/Docusate Sodium 1 tab 07/24/24 10:37 07/25/24 20:34 Senna/Docusate Sodium Tablet PO 1 tab HS PRN Administration Constipation Sumatriptan Succinate 50 mg 07/24/24 12:31 Sumatriptan Succinate 25 Mg Tablet PO ONCE PRN Migraine Headache Zolpidem Tartrate 5 mg 07/24/24 12:31 Zolpidem Tartrate (*Crx) 5 Mg Tablet PO HS PRN Insomnia Radiology Results: ITS Impressions Fluoroscopy 07/24/24 11:14 IMPRESSION: 1. Fluoroscopy utilized during L4 laminectomy and instrumented L4-L5 anterior and posterior spinal fusion. See procedure note for further detail.
[2024-07-27] MEDS: polyethylene glycoL 3350 17 GM POWD.PACK PO (09:05)
[2024-07-27 14:32] VITALS: BP 120/67; PULSE 81; RESP 20; TEMP 36; O2SAT 100
[2024-07-27] MEDS: oxyCODONE HCL (*CRX) 5 MG TAB IR PO ×2 (16:14→20:36)
[2024-07-27 22:10] VITALS: BP 121/69; PULSE 89; RESP 16; TEMP 36.9; O2SAT 100
[2024-07-27] MEDS: SENNA/DOCUSATE SODIUM TABLET 1 TAB PO (23:17)
[2024-07-28] MEDS: oxyCODONE HCL (*CRX) 5 MG TAB IR 10 MG PO (03:15)
[2024-07-28] MEDS: methocarbamoL 500 MG TABLET 1000 MG PO ×2 (03:16→10:28)
[2024-07-28] MEDS: dexAMETHasone 4 MG TABLET PO (05:51)
[2024-07-28] MEDS: diazePAM (*CRX) 5 MG TABLET PO (05:54)
[2024-07-28] MEDS: ACETAMINOPHEN 500 MG TABLET 1000 MG PO (05:54)
[2024-07-28 08:00] VITALS: PULSE 89; RESP 16; O2SAT 100
[2024-07-28] MEDS: DOCUSATE SODIUM 100 MG CAPSULE PO (08:21)
[2024-07-28] MEDS: LIDOCAINE 5% PATCH 1 PATCH TRANSDERM (08:21)
[2024-07-28] MEDS: estradioL 0.5 MG TABLET PO (08:22)
[2024-07-28] MEDS: oxyCODONE HCL (*CRX) 5 MG TAB IR PO (08:37)
--- NOTE | 2024-07-28 11:22 | PM.DS ---
DS: Admitting Diagnosis Discharge Date July 28, 2024 Admitting Diagnosis Lumbar pars defect DS: Discharge Diagnosis Discharge Diagnosis (1) Status post lumbar spinal arthrodesis: Code(s): Z98.1 - Arthrodesis status Status: Acute DS: Summary Hospital Course Hospital Course: Ms. Duarte presented on July 24 for surgery; please see the operative note for more details. She was transferred to the floor. She had significant difficulty with pain control after surgery requiring multiple days of medication adjustments to find an adequate oral medication regimen. She worked with therapy who cleared her for discharge home. By POD 4, her pain was reasonably controlled. She was tolerating oral intake. She was determined ready for discharge home on POD4. Time Spent with Patient Time attestation: Total time spent providing and/or coordinating discharge services: Discharge Plan Discharge Discharging Clinician: Luz Marina Hernandes Patient Disposition: Home, Self-Care Activity: other - see discharge instructions Diet: as tolerated Wound Care Instructions: follow printed instructions Patient Instructions: Pain Management (DC) Follow-up/Referrals: Hoang Dalton MD [Physician] - Discharge Medications: New diazepam 5 mg Tablet 5 mg PO Q6HR PRN (Reason: Muscle Spasm) 7 Days Qty: 28 0RF oxycodone 5 mg Tablet 5 mg PO Q4H PRN (Reason: Pain Rated 4-6) 7 Days Qty: 42 0RF sennosides-docusate sodium [Senokot-S] 8.6-50 mg Tablet 1 tab PO BID 10 Days Qty: 20 0RF methylprednisolone [Methylpred DP] 4 mg tablets,dose pack See Rx Instructions .ROUTE .COMPLEX Qty: 21 0RF Rx Instructions: for 6 days Continued estradiol 1 mg tablet 0.5 mg PO DAILY sumatriptan succinate [Imitrex] 50 mg tablet 50 mg PO ONCE PRN (Reason: Migraine Headache) tizanidine 4 mg tablet 4 mg PO HS zolpidem 5 mg tablet 5 mg PO HS PRN (Reason: Insomnia) Held tramadol 50 mg tablet 50 mg PO Q6H PRN (Reason: Pain) Date of admission: 07/27/24 00:07 Primary Care Provider: Cristi,Arnold Steinberg MD Admitting Provider: Hoang Dalton Attending physician on admission: Hoang Dalton Condition: Stable
== END 2024-07-28 12:00 | disposition home or self-care (01) | DRG 451 ==
LOC: ANHSURGERY 10:51 → ANH3MEDSUR 10:51
PROVIDERS: Admitting Provider Neurological Surgery; Visit Provider Neurological Surgery
PROC: (CPT 22612; principal; 2024-07-24 07:30)
DX: M43.16 Spondylolisthesis, lumbar region (principal)
CPT/HCPCS: 97116; 97161; 97165; 97530; 97535; 99199; A9270; C1713; J0330; J0690; J1100; J1171; J1644; J1885; J2003; J2004; J2250; J2371; J2405; J2704; J3010; J3360; J3480; J7120; J8540

== ENCOUNTER 2024-09-06 12:23 | Outpatient (CLI) | payer BC, SELFPAY ==
--- NOTE | ~2024-09-06 | XR_ITS ---
EXAMINATION: XR lumbar spine 2-3V DATE: 09/06/2024 12:44 INDICATION: Spondylolisthesis, site unspecified. TECHNIQUE: 3 views of lumbar spine including standing views were obtained. COMPARISON: None. FINDINGS: There are changes of anterior posterior fusion procedures at L4-L5 with interbody devices a nd pedicle screws. There is focal kyphosis at L4-L5. Vertebral body heights are normal. There is mild ly decreased disc height at T12-L1. There is multilevel [id number] facet joint osteoarthritis. IMPRESSION: 1. Anterior and posterior fusion procedures at L4-L5. 2. Mild lumbar spondylosis. Reviewed, dictated and finalized at location A. PULLER
== END 2024-09-06 12:24 | disposition home or self-care (01) ==
LOC: MICIMG 12:23
PROVIDERS: Visit Provider Neurological Surgery
DX: M47.816 Spondylosis without myelopathy or radiculopathy, lumbar region (principal); M43.26 Fusion of spine, lumbar region; M43.10 Spondylolisthesis, site unspecified
CPT/HCPCS: 72100

== ENCOUNTER 2025-01-22 14:46 | Outpatient (CLI) | payer BC, SELFPAY ==
--- NOTE | ~2025-01-22 | XR_ITS ---
Lumbosacral Spine: AP and lateral views Clinical History: Arthrodesis COMPARISON: 09/06/2024 Findings: Stable posterior and interbody fusion from L4 to L5. Stable osseous and orthopedic hardware alignment. Stable underlying grade 1 anterolisthesis of L4 over L5. Mild facet arthropathy L3-L4 pre sent. The sacroiliac joints are normally outlined. Impression: Stable postoperative change at L4-L5, as detailed above. Minimal degenerative change. Reviewed, dictated and finalized at location . Impression: Stable postoperative change at L4-L5, as detailed above. Minimal degenerative change.
--- OUTSIDE RECORDS SUMMARY | 2025-01-22 14:56 | XMS_ITS | Continuity of Care Document ---
Author Organization [facility] Address [address] [place] [address] Phone Care Team Providers Care Sales Agent [employer] Name Role Phone Fredy Pimentel MD Unavailable Unavailable Allergies, Adverse Reactions, Alerts Substance Reaction Status Criticality No Known Allergies Active No Inform ation Medications Medication Instructions Dosage Effective Dates (start - stop) Status Comments hydrocodone 10 mg-acetaminophen 325 mg tablet take 1 tablet by oral route every 4 - 6 hours as needed for pain 1.00 tablet - Active orphenadrine citrate ER 100 mg tablet,extended release take 1 tablet by oral route every day in the morning and evening as needed 100 MG - Active Vimovo 500 mg-20 mg tablet,immediate and delay release take 1 tablet by oral route 2 times every day 30 minutes before meals as needed 1.00 tablet - Active Procedures Procedure Date OFFICE CONSULTATION Advance Directives Directive Yes / No Effective Date File Name No Information Encounters Encounter Description Practice Location Reason(s) For Visit Diagnoses Date Provider Providers Copied on Encounter OFFICE CONSULTATION [facility], [address] [place], [place] [address], [place], [address], tel:[phone] [facility] Bilateral low back pain without sciaticaBody mass index (BMI) 25.0-25.9, adult Apr- 7 Loren Daniel. [address] [place], [place], [id number] . tel: [phone] Referring Provider: Arnold Steinberg, [address] [place] [address], [place], [address] . tel:[phone] Family History Family Member Type Diagnosis Age At Onset Father Problem (finding) Heart disease Payers Payer name Insurance type Covered democrat ID Oswaldo duran(s) No Information Social History Type Description Quantity Date Captured Comments Alcohol Use Details Unknown Caffeine Use Details Unknown Tobacco Use Status Never smoked tobacco 2016 Smoking Status Never smoker Non-Smoking Tobacco Use Details : No Details Available : No Details Available Sex Female Vital Signs Date / Time: Height Weight BMI Pulse Rate Blood Pressure Temperature Respiratory Rate Body Surface Area Head Circumference Head Circ. Percentile Wt./Andreas. Percentile BMI percentile Pulse Ox Inhaled Ox 6:26 AM 68.00 in 74.843 kg (165.00 lbs) 25.0 9 kg/m eter (2) Chief Complaint And Reason For Visit No Information Reason For Referral Reason For Referral No Information Plan Of Treatment Date Type Action Status Referral Ordered: MRI SPI CANAL&CNTS LMBR C-MATRL ordered Nutrition Recommendation Nutrition / feed ing management completed History Of Present Illness Encounter Date Complaint History Of Prese nt Illness No Information Functional Status Date Functional Assessmen t No Information Instructions Date Instruction Additional Infor mation Apply ice as tolerated. Related to Bilateral low back pain without sciatica Activity as tolerated Related to Bilateral low back pain without sciatica Giving encouragement to exercise Related to Body mass index (BMI) 25.0-25.9, adult Assessments Type Assessment Date assessment Bilateral low back pain without sciatica assessment Body mass index (BMI) 25.0-25.9, adult Patient Care Teams Name Effective Dates (start - stop) Status Members No Information
--- OUTSIDE RECORDS SUMMARY | 2025-01-22 14:56 | XMS_ITS | Data Portability ---
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 She says she started having right knee pain in January 2017. She stepped off a tractor. She felt immediate knee pain. Eventually it did get better although its flared a couple times a year since that time. She says that the pain has been hurting now more over the past 3 months. She recently had a spondylolisthesis surgery performed in June 2024. Since that time she has had pain and swelling as well as instability especially with stairs in her right knee. The pain varies between a 1 and a 5 out of 10. Bending and activity seems to cause swelling in her knee. Ice and rest seems to help the pain. She is tried ibuprofen at home exercises Tylenol without relief of pain. She says there is pain at night. She says there is pain with activities of daily living involving bending and straightening the knee. The pain is otherwise constant and sharp. No radiation of symptoms. Social history denies smoking and alcohol use. 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 Physical examination: Head is atraumatic, normocephalic. Mood and affect is appropriate. She answers questions appropriately. Eyes without scleral icterus. Chest exam shows no use of accessory muscles. She has 5 out of 5 strength with bilateral ankle dorsiflexors. She has a moderate right knee effusion and no effusion of the left knee. She has pain with forced hyperextension, flexion and Rod's maneuver of the right knee and negative on the left knee. She has no varus or valgus laxity and a negative Roxana and posterior drawer bilaterally. She walks with an antalgic gait. X-rays of the right knee were independently reviewed from [facility] and show no significant abnormalities. Assessment: 1. Right knee pain probable medial meniscus tear with effusion. 2. Recent history of spinal fusion for spondylolisthesis. Plan: Clinical and radiographic findings were discussed with the patient. I did provide her with some home exercises today. I would recommend an MRI of her right knee to evaluate for the presence of a meniscus tear. Not available 09/18/2024 10:07:42 10/02/2024 10/02/2024 History: Temitope is a 49-year-old female who returns for follow-up of her right knee. She started having right knee pain back in 2017. It was made worse when she had a spondylolisthesis surgery performed last year. She says that the pain is mostly on the posterior and anterior aspect of the right knee. She has not had any injections or physical therapy. She does work as a flight nurse and sometimes it does bother her with activities. She says it has been a little better over the past 2 weeks. Physical examination: She has pain with forced hyperflexion Rod's maneuver and along the medial joint line of the right knee and negative on the left knee. No varus or valgus laxity the bilateral knees. Mild right knee effusion no effusion left knee. She walks nonantalgic gait. Roxana's test is negative bilaterally. X-rays and MRI of the right knee were independently reviewed from [facility] and show right knee oblique undersurface medial meniscus tear without a flipped fragment. There is also moderately severe chondromalacia of the patella with underlying patellar contusion/edema. Assessment: 1. Right knee oblique undersurface medial meniscus tear without flipped fragment. 2. Right knee moderately severe patella chondromalacia, central. Plan: Clinical findings were discussed with patient. Recommended conservative management of her right knee with a cortisone injection and physical therapy. She will do the physical therapy in [facility]. She will follow-up again in 6 weeks. We will monitor her progress and determine if she needs a procedure to help her with her pain or if further conservative treatment would be appropriate. Not available 10/02/2024 10:40:58 11/13/2024 11/13/2024 History: Temitope returns for follow-up of her right knee. She had the right knee cortisone injection on 10/02/2024. Her pain is much better. It is currently about a 1 out of 10 at worst. She is able to exercise without much pain as well as do stairs. There is no catching or locking or swelling in her knee. Physical examination: She has full painless range of motion of the bilateral knees. She has minimal pain to forced hyperextension and flexion of the right knee and negative on the left knee. No significant pain to palpation along the medial aspect of the right knee. Minimal pain with Rod's maneuver of the right knee. Negative Roxana of the bilateral knees. X-rays and MRI of the right knee were independently reviewed from [facility] and show a medial meniscus tear with a small peripheral flipped fragment. There is also some moderate severe chondromalacia involving the patellofemoral joint. Assessment: 1. Right knee radial oblique medial meniscus tear with small flipped fragment. 2. Right knee moderately severe patellofemoral joint chondromalacia. Plan: Clinical findings were discussed with the patient. I recommended conservative management of the right knee with continued home exercises. The pain will hopefully go away forever but if it returns him happy to see her back to discuss repeat injection or surgery. Not available 11/13/2024 09:26:45 Plan of Treatment Reminders Order Date Submit Date Provider Last Modified By Organization Details Last Modified Time Details Appointments None record ed. Lab None record ed. Referral None record ed. Procedures None record ed. Surgeries None record ed. Imaging None record ed. Medication Orders None record ed. Patient TargetsNo targets recorded. Patient InstructionsNo instructions recorded. Reason for Referral None Reported. Problems Name Problem SNOMED Code Status Onset Date Resolution Date Notes Provider Name and Address Organization Details Recorded Time Pain of right knee joint 4481625966115 00 Active 2024 Heriberto Henry MD [address] [place] [address], [id number], [facility] 5 14:22:27 Osteoarthri tis of right knee joint 7539233405249 00 Active 2024 Heriberto Henry MD [address] [place] [address], [phone], [facility] 5 10:35:51 Tear of medial meniscus of knee 511791041 Active 2024 Heriberto Henry MD [address] [place] [address], [phone], [facility] 5 10:35:57 Problem Notes None recorded. Procedures Surgical History Date Name Laterality Status Provider Name and Address Organization Details Recorded Time 5 SC Knee injection completed Heriberto Henry MD [address] [place] [address], [phone], [facility] 10/02/2024 10:41:10 Imaging Results None recorded. Procedure Notes None recorded. Medical Equipment None Reported. Allergies Allergen ID Allergen Name Allergen Category Reaction Reaction Severity Criticality Documentation Date Start Date Code Code System Note Provider Name and Address Organization Details Recorded Time 2523289 Substance with sulfonami de structure and antibacte rial mechanism of action (substanc e) medicatio n Not available Not available Not available 09/18/2024 [id number] SNOMED Funmi Castellano [facility] 5 09:56:52 Vitals Date Recorded Body height Body mass index (BMI) Body weight Heart rate Oxygen saturation Oxygen saturation in Arterial blood by Pulse oximetry Systolic And Diastolic Provider Name and Address Organization Details Last Updated DateTime 5 170.18 cm 29 kg/m2 75159.5 9 g 77 /min 100 % 100 % 122/86 mm[Hg] Funmi Castellano [facility] 5 09:56:27 Date Recorded Body height Body weight Body mass index (BMI) Heart rate Oxygen saturation Oxygen saturation in Arterial blood by Pulse oximetry Systolic And Diastolic Provider Name and Address Organization Details Last Updated DateTime 5 170.18 cm 41109.5 9 g 29 kg/m2 65 /min 100 % 100 % 129/83 mm[Hg] Jany Reyes [facility] 5 10:30:35 Social History None recorded. Functional Status None recorded. Mental Status None recorded. Family History Nothing Reported. Medical History No medical history recorded. Gynecological HistoryNo gynecological history recorded. Obstetrics History GPAL:G 0 P 0 0 0 0 Past Encounters Encounter ID Performer Location Encounter Start Date Encounter Closed Date Diagnosis/Indication Diagnosis SNOMED-CT Code Diagnosis ICD10 Code Diagnosis Note [id number] Heriberto Henry MD [facility] [place] [address] 09/18/2024 09:24:48 09/18/2024 10:08:56 Pain of right knee joint 9908171246 35750 M25.561 [id number] Heriberto Henry MD [facility] [place] [address] 10/02/2024 10:24:59 10/02/2024 10:44:48 Osteoarthritis of right knee joint 0060297696 44186 M17.11 Tear of me dial meniscus of knee 866536648 S83.241A [id number] Heriberto Henry MD [facility] [place] [address] 11/13/2024 09:00:34 11/13/2024 09:28:27 Osteoarthritis of right knee joint 0971016270 04317 M17.11 Tear of me dial meniscus of knee 083557849 S83.241A Health Concerns Section Related Observation LastModified by Organization Detai ls LastModified Time None Recorded Concern Status LastModified by Organization Details LastModified Time None Recorded Advance Directives Directive None Recorded Payers Insurance Date Sequence Insurance Name Policy Number Policy Kingsley Covered Member ID Kingsley Member ID Guarantor Name 11/08/2024 1 [place] [id number] Temitope Duarte [id number] Temitope Duarte OBGyrene Episode No OBEpisode recorded.
--- OUTSIDE RECORDS SUMMARY | 2025-01-22 14:56 | XMS_ITS | Continuity of Care Document ---
Author Organization [facility] Address [address] [place] [address] Phone Care Team Providers Care Strategic Communications Specialist Name Role Phone Marleni MICHEL Gillian Unavailable Unavailable Allergies, Adverse Reactions, Alerts Substance Reaction Status Criticality Sulfa (Sulfonamide Antibiotics) Active No Information Medications Medication Instructions Dosage Effective Dates (start - stop) Status Comments benzonatate 100 mg capsule take 1 capsule by oral route 3 times every day as needed for cough 100 MG - Active LEVOTHYROXINE SODIUM (unknown strength) take 1 capsule by oral route every day Not Available - Active Lexapro 10 mg tablet take 1 tablet by oral route every day 10 MG - Active amoxicillin 875 mg tablet take 1 tablet by oral route every 12 hours 875 MG - No Longer Active Advance Directives Directive Yes / No Effective Date File Name No Information Encounters Encounter Description Practice Location Reason(s) For Visit Diagnoses Date Provider Providers Copied on Encounter [facility], [address] [place] [address], [facility], tel:[phone] [place] COUGH (chief complaint) Cough Brucecarlos Gillian. [address] [place] [address], [facility], . tel:[phone] Family History Family Member Type Diagnosis Age At Onset No Information Payers Payer name Insurance type Covered alliance party ID Authoriza tion(s) No Information Social History Type Description Quantity Date Captured Comments Alcohol Use Details Unknown Caffeine Use Details Unknown Tobacco Use Status Current non-smoker Smoking Status Never smoker Non-Smoking Tobacco Use Details : No Details Available : No Details Available Sex Female Vital Signs Date / Time: Height Weight BMI Pulse Rate Blood Pressure Temperature Respiratory Rate Body Surface Area Head Circumference Head Circ. Percentile Wt./Andreas. Percentile BMI percentile Pulse Ox Inhaled Ox 4:12 PM 68.00 in 85.366 kg (188.20 lbs) 28.6 2 kg/m eter (2) 70 /min 102/70 mm[Hg] 98.10 F 16 /min 97 % Chief Complaint And Reason For Visit From encounter dated '01/11/2022 15:52'. COUGH (chief complaint). Description: Onset: 10 days ago. The patient describes the cough as persistent and productive (of green sputum). Reason For Referral Reason For Referral No Information Plan Of Treatment Date Type Action Status Goal Pap/HPV testing. Due on due Goal Tdap. Due on due Goal Td vaccine. Due on 22 due Goal Lipid panel. Due on 022 due Goal Depression screening. Due on due Goal Influenza vaccine. Due on due Patient Education benzonatate 100 mg caps ule completed History Of Present Illness Encounter Date Complaint History Of Prese nt Illness COUGH Onset: 10 days a go. The patient describes the cough as persistent and productive (of green sputum). COUGH (comments) Temitope is a 46 -year old female who presents to the clinic today with complaint of cough. Symptoms started 10 days ago. Cough is productive with green sputum noted. She states that she works at [employer] and that she is tested for Covid twice weekly. She states that she was tested today and that it was negative. She denies any other symptoms. She offers no other concerns or complaints at this time. Functional Status Date Functional Assessmen t No Information Instructions Date Instruction Additional Infor cesia Take all medications as prescribed.Rest.Fluids.Sleep with HOB elevated.Follow up with PCP or return to clinic if no improvement, symptoms worsen. Related to Cough Assessments Type Assessment Date assessment Cough Mental Status Date Cognitive Assessment Orientation - [place] ed to time, place, person, situation.Normal Orientation Patient Care Teams Name Effective Dates (start - stop) Status Members No Information
== END 2025-01-22 14:47 | disposition home or self-care (01) ==
PROVIDERS: Visit Provider Nurse Practitioner Adult Health
DX: M43.16 Spondylolisthesis, lumbar region (principal); Z98.1 Arthrodesis status
CPT/HCPCS: 72100